=== PATIENT | male | born 1995 | race Caucasian/White ===

== ENCOUNTER 2020-03-09 21:09 | Emergency (ER) | payer SELFPAY ==
[~2020-03-09] VITALS: Ht 193 cm; Wt 113.4 kg
[2020-03-09 21:15] VITALS: BP_SYST 140
--- NOTE | 2020-03-09 21:15 | NUR ---
Placed in room 6 . Placed on monitoring specialist, blood pressure machine and pulse oximeter. To gown for exam. Side rails up.
--- NOTE | 2020-03-09 21:18 | NUR ---
ER at bedside examining patient.
--- NOTE | 2020-03-09 21:20 | NUR ---
Pt presents to the ER c/o Hip pain. Pt reports falling down cleaning a fish tank. Pt states feeling nauseas and slightly dizzy. Pt has hx of vertigo and asthma. Pt rates pain 7/10. Denies LOC, headache or blurry vision.
[2020-03-09] MEDS ORDERED: KETOROLAC TROMETHAMINE 60 MG/2 ML VIAL IM ONE (21:30)
[2020-03-09 22:24] VITALS: BP_SYST 140
--- NOTE | 2020-03-09 22:24 | NUR ---
Patient given written and verbal discharge instructions and verbalizes understanding. ER MD discussed with patient the results and treatment provided. Patient in stable condition. ID arm band removed. Rx of naprosyn given. Patient educated on pain management and to follow up with PMD. Opportunity for questions provided and answered. Medication side effect fact sheet provided.
== END 2020-03-09 22:24 | disposition home or self-care (01) ==
LOC: SED 21:09
DX: M25.552 Pain in left hip (principal); J45.909 Unspecified asthma, uncomplicated; W18.39XA Other fall on same level, initial encounter; Y93.E9 Activity, other interior property and clothing maintenance; Y92.89 Other specified places as the place of occurrence of the external cause; Y99.8 Other external cause status
CPT/HCPCS: 72192; 96372; 99284; J1885

== ENCOUNTER 2020-05-05 12:23 | Emergency (ER) | payer SELFPAY ==
[~2020-05-05] VITALS: Ht 190.5 cm; Wt 113.4 kg
[2020-05-05 12:25] VITALS: BP_SYST 142
== END 2020-05-05 12:47 | disposition left against medical advice (07) ==
LOC: SED 12:23
DX: M25.562 Pain in left knee (principal); J45.909 Unspecified asthma, uncomplicated; V19.9XXA Pedal cyclist (driver) (passenger) injured in unspecified traffic accident, initial encounter; Y93.89 Activity, other specified; Y92.89 Other specified places as the place of occurrence of the external cause; Y99.8 Other external cause status
CPT/HCPCS: 99283